=== PATIENT | male | born 1940 | race Hispanic/Latino ===

== ENCOUNTER 2016-03-20 11:54 | Outpatient (CLI) | payer MEDICARE, OTHER ==
--- NOTE | 2016-03-20 15:53 | Cat Scan Report ---
CT scan of abdomen and pelvis with IV contrast: History: Weight loss, carcinoid syndrome. Findings: Normal lung bases. No pleural pericardial effusion. Normal limits and pancreas. Patient status post cholecystectomy. Calcifications at spleen suggestive of calcified granulomas. Small sliding hiatal hernia. Normal adrenals. Single large cyst in the left kidney measures 5.2 x 4.8 cm. Smaller cyst in the left kidney measures 2.8 cm. Large cyst in the right kidney measures 1.4 cm and the smaller cyst measures 1.1 cm with several subcentimeter cysts. Normal bladder.Enlarged prostate measuring 5 cm in maximum diameter. No free intraperitoneal fluid or air. No evidence of adenopathy. Atherosclerotic abdomen without evidence of aneurysm. Diverticulosis sigmoid colon without evidence of diverticulitis. Normal appendix. Gaseous colon with moderate amount of stool in colon. Impression: Calcified granuloma spleen. Small sliding hiatal hernia. Bilateral renal cysts. Enlarged prostate. Diverticulosis sigmoid colon.
== END 2016-03-20 11:55 | disposition home or self-care (01) ==
LOC: CT 11:54
DX: C7A.098 Malignant carcinoid tumors of other sites (principal); K44.9 Diaphragmatic hernia without obstruction or gangrene; K57.30 Diverticulosis of large intestine without perforation or abscess without bleeding; N40.0 Benign prostatic hyperplasia without lower urinary tract symptoms; R63.4 Abnormal weight loss; D73.89 Other diseases of spleen; Z90.49 Acquired absence of other specified parts of digestive tract
CPT/HCPCS: 36415; 74177; 82565; 84520; Q9967

== ENCOUNTER 2016-05-25 09:09 | Outpatient (CLI) | payer MEDICARE, OTHER ==
--- NOTE | 2016-05-25 14:58 | Nuclear Medicine Report ---
BONE SCAN: History: Carcinoid tumor, back pain, right femur pain After injection of isotope, gamma camera imaging of the bony system was done. There is a normal uptake of isotope throughout the bony structures without areas of significantly increased or decreased uptake. Normal uptake in the urinary system is seen. Extrarenal pelvis in the left kidney is noted. Mild degenerative uptake is noted in the spine. No abnormal uptake in the right femur. IMPRESSION: Mild degenerative uptake. No metastatic pattern or fracture identified.
== END 2016-05-25 09:10 | disposition home or self-care (01) ==
LOC: NM 09:09
DX: C7A.00 Malignant carcinoid tumor of unspecified site (principal); M89.9 Disorder of bone, unspecified
CPT/HCPCS: 78306; A9503

== ENCOUNTER 2016-09-24 12:56 | Outpatient (CLI) | payer MEDICARE, OTHER ==
[2016-09-24] MEDS ORDERED: NACL ONE (15:07)
--- NOTE | 2016-09-25 07:47 | Cat Scan Report ---
CT scan of abdomen and pelvis with IV contrast: Compared to 03/20/16. History: Carcinoid. Findings: Normal lung bases. No pleural or pericardial effusion. Normal liver. Calcified granuloma spleen. Normal pancreas. Patient status post cholecystectomy. Normal adrenals. Cyst in left kidney measures 5.5 cm. Second cyst measure 3.09 cm. No interval change. Sub-centimeters cortical cyst right kidney the largest cyst measuring 1.3 cm. No interval change. Normal bladder. Prostate measures 4.3 x 5.5 cm. Diverticulosis sigmoid colon. No evidence of appendicitis. No evidence of adenopathy. No free intraperitoneal fluid or air. Impression: Calcified granuloma spleen. Bilateral renal cysts. Enlarged prostate. Diverticulosis sigmoid colon. No significant interval change.
== END 2016-09-24 12:57 | disposition home or self-care (01) ==
LOC: CT 12:56
DX: C7A.098 Malignant carcinoid tumors of other sites (principal); D73.89 Other diseases of spleen; N28.1 Cyst of kidney, acquired; K57.30 Diverticulosis of large intestine without perforation or abscess without bleeding; N40.0 Benign prostatic hyperplasia without lower urinary tract symptoms; Z90.49 Acquired absence of other specified parts of digestive tract
CPT/HCPCS: 36415; 74177; 82565; 84520; Q9967

== ENCOUNTER 2016-10-28 11:38 | Outpatient (CLI) | payer MEDICARE, OTHER ==
--- NOTE | 2016-10-28 15:02 | Ultrasound Report ---
ULTRASOUND THYROID SCAN History: Thyroid nodule, dysphagia. Findings: The thyroid gland is normal size, contour and echotexture. The right lobe measures 3.7 x 1.5 x 1.8 cm. The left lobe measures 3.3 x 1.3 x 1.5 cm. The isthmus measures 4 mm in thickness. A 3 mm cyst is identified at the inferior whole O. the right thyroid lobe. There are 3 cysts measuring up to 7 mm in the mid to superior left thyroid lobe. No suspicious thyroid mass or cervical adenopathy. There is symmetric perfusion to the thyroid lobes on color Doppler. Impression: Essentially normal exam of the thyroid. Few scattered, tiny thyroid cysts are noted.
== END 2016-10-28 11:39 | disposition home or self-care (01) ==
LOC: US 11:38
PROVIDERS: ATTEND Internal Medicine
DX: E04.1 Nontoxic single thyroid nodule (principal); R13.10 Dysphagia, unspecified; I10 Essential (primary) hypertension; I48.91 Unspecified atrial fibrillation; E78.00 Pure hypercholesterolemia, unspecified; J18.9 Pneumonia, unspecified organism; E11.9 Type 2 diabetes mellitus without complications
CPT/HCPCS: 76536

== ENCOUNTER 2017-02-24 13:07 | Outpatient (CLI) | payer MEDICARE, OTHER ==
--- NOTE | 2017-02-24 18:09 | Ultrasound Report ---
FINAL REPORT EXAM: US TESTICULAR DOPPLER COMP HISTORY: ORCHITIS AND EPIDIDYMITIS TECHNIQUE: Ultrasound scrotum PRIORS: None. FINDINGS: There is some heterogeneity of echotexture right testicle. There are multiple enlarged serpiginous vascular structures seen some of which appear intratesticular. There is normal vascular flow to the right testicle. There is a complex fluid collection within the right hemiscrotum. Right epididymis contains serpiginous vascular structures and has a heterogeneous appearance. Left testicle has a heterogeneous echotexture. There is a small fluid collection within the left hemiscrotum with some debris present. The left epididymis is enlarged and has a complex appearance. Within the left epididymis there is a 1.4 x 0.8 centimeter cyst IMPRESSION: Right-sided varicocele which is partially intratesticular and intra epididymal Bilateral mildly complex small fluid collections Heterogeneous enlarged appearance of the left epididymis Heterogeneous echotexture of the testicles bilaterally Suspect epididymal orchitis most likely bilateral
== END 2017-02-24 13:08 | disposition home or self-care (01) ==
LOC: US 13:07
PROVIDERS: ATTEND Urology
DX: N45.1 Epididymitis (principal); I86.1 Scrotal varices; E11.9 Type 2 diabetes mellitus without complications; I10 Essential (primary) hypertension; I25.10 Atherosclerotic heart disease of native coronary artery without angina pectoris
CPT/HCPCS: 93975

== ENCOUNTER 2017-04-27 10:05 | Inpatient (IN) | payer MEDICARE, OTHER ==
[2017-04-27] MEDS ORDERED: ASPIRIN PO ONE (10:15)
[2017-04-27 10:39] LABS: Basophils % (Auto) 0.4 % (0.0-1.8); Eosinophils # (Auto) 0.1 K/mm3 (0.0-0.4); Eosinophils % (Auto) 1.8 % (0.0-4.3); Hemoglobin 13.6 gm/dl (11.8-15.2); Lymphocytes # (Auto) 0.5 K/mm3 (1.2-5.4); Lymphocytes % (Auto) 7.6 % (13.4-35.0); Mean Corpuscular HGB Conc 32 % (32-34); Mean Corpuscular Volume 79 fl (84-94); Monocytes # (Auto) 0.6 K/mm3 (0.0-0.8); Platelet Count 169 K/mm3 (140-440); Red Blood Count 5.44 M/mm3 (3.65-5.03)
[2017-04-27 10:40] LABS: Mean Corpuscular Hemoglobin 25 pg (28-32); Red Cell Distribution Width 21.1 % (13.2-15.2)
[2017-04-27 11:06] LABS: BUN/Creatinine Ratio 14; Blood Urea Nitrogen 18 mg/dL (9-20); Calcium 9.2 mg/dL (8.4-10.2); Hemolysis Index 8
--- NOTE | 2017-04-27 11:07 | Emergency Department Report ---
ED General Adult HPI - General Chief complaint: Dyspnea/Respdistress Stated complaint: SOB/LEG SWEELING Time Seen by Provider: 04/27/17 10:45 Source: patient Mode of arrival: Ambulatory Limitations: No Limitations - History of Present Illness Initial comments: Patient w. Multiple medical complaints. chronic history of A. fib and chronic chest pain COPD diabetes hypertension he has been told he has musculoskeletal chest pain. He is here for dizzy spells for 24 hours. He says his question of worse with movement of head was some question of spinning he also states that he 's been having chest pain for 4 days and worsening pedal edema for 4 days. He is on Lasix for chronic pedal edema. He takes Lantus lisinopril hydralazine Isordil clonidine. isordil, statin and is here for evaluation of dizzy spells chest pain and worsening pedal edema and dizzy spells make him feel like he is black out -: days(s), unknown Location: chest, lower extremity Radiation: non-radiation Associated Symptoms: chest pain, malaise, other (dizzy spells) - Related Data Home Medications Medication Instructions Recorded Confirmed Last Taken Carvedilol [Coreg] 6.25 mg PO DAILY 03/21/13 06/30/15 06/30/15 yes Dabigatran [Pradaxa] 75 mg PO BID 03/21/13 06/30/15 06/30/15 yes Isosorbide Mononitrate [Isosorbide 120 mg PO DAILY 03/21/13 06/30/15 06/30/15 Mononitrate ER (IMDUR)] yes Latanoprost [Xalatan 0.005% eye 1 drop OU HS 03/21/13 06/30/15 06/30/15 drops] yes Simvastatin [Zocor TAB] 20 mg PO DAILY 03/21/13 06/30/15 06/30/15 yes glipiZIDE [Glucotrol] 10 mg PO DAILY 03/21/13 06/30/15 06/29/15 yes Dexlansoprazole [Dexilant] 30 mg PO QDAY 06/19/14 06/30/15 06/30/15 yes Insulin Glargine [Lantus VIAL] 20 unit SUB-Q QHS 06/19/14 06/30/15 06/30/15 yes Lisinopril [Zestril] 20 mg PO QDAY 06/30/15 06/30/15 06/30/15 yes amLODIPine [Norvasc] 5 mg PO DAILY 06/30/15 06/30/15 06/30/15 yes hydrALAZINE [Apresoline TAB] 100 mg PO DAILY 06/30/15 06/30/15 06/30/15 yes Allergies Allergy/AdvReac Type Severity Reaction Status Date / Time diazepam [From Valium] AdvReac Intermediate CHEST PAIN Verified 01/31/14 14:10 ED Review of Systems ROS: Stated complaint: SOB/LEG SWEELING Other details as noted in HPI Comment: All other systems reviewed and negative Eyes: denies: eye discharge, vision change Respiratory: orthopnea, shortness of breath. denies: cough, SOB with exertion, wheezing Cardiovascular: chest pain, palpitations, orthopnea, syncope, paroxysmal nocturnal dyspnea Gastrointestinal: denies: diarrhea, constipation, hematemesis, melena, hematochezia Musculoskeletal: denies: joint swelling, arthralgia, myalgia Neurological: denies: weakness, numbness, paresthesias, confusion, abnormal gait ED Past Medical Hx - Past Medical History Hx Hypertension: Yes (took this morning) Hx Diabetes: Yes (FOR 10 YRS) Hx GERD: Yes Hx Liver Disease: No Hx Renal Disease: No Hx Sickle Cell Disease: No Hx Seizures: No Hx Asthma: No Hx COPD: No Hx HIV: No Additional medical history: a fib - Surgical History Hx Coronary Stent: Yes (X1 IN 2002) Hx Pacemaker: No Hx Internal Defibrillator: No Hx Cholecystectomy: Yes ([facility] 04-25-07) Additional Surgical History: Hernia repair 06/27/14 at [facility] - Social History Smoking Status: Never Smoker Substance Use Type: None - Medications Home Medications: Home Medications Medication Instructions Recorded Confirmed Last Taken Type Carvedilol [Coreg] 6.25 mg PO DAILY 03/21/13 06/30/15 06/30/15 History yes Dabigatran [Pradaxa] 75 mg PO BID 03/21/13 06/30/15 06/30/15 History yes Isosorbide Mononitrate [Isosorbide 120 mg PO DAILY 03/21/13 06/30/15 06/30/15 History Mononitrate ER (IMDUR)] yes Latanoprost [Xalatan 0.005% eye 1 drop OU HS 03/21/13 06/30/15 06/30/15 History drops] yes Simvastatin [Zocor TAB] 20 mg PO DAILY 03/21/13 06/30/15 06/30/15 History yes glipiZIDE [Glucotrol] 10 mg PO DAILY 03/21/13 06/30/15 06/29/15 History yes Dexlansoprazole [Dexilant] 30 mg PO QDAY 06/19/14 06/30/15 06/30/15 History yes Insulin Glargine [Lantus VIAL] 20 unit SUB-Q QHS 06/19/14 06/30/15 06/30/15 History yes Lisinopril [Zestril] 20 mg PO QDAY 06/30/15 06/30/15 06/30/15 History yes amLODIPine [Norvasc] 5 mg PO DAILY 06/30/15 06/30/15 06/30/15 History yes hydrALAZINE [Apresoline TAB] 100 mg PO DAILY 06/30/15 06/30/15 06/30/15 History yes ED Physical Exam - General Limitations: No Limitations General appearance: alert, anxious - Head Head exam: Present: atraumatic, normocephalic - Eye Eye exam: Present: PERRL, EOMI - Neck Neck exam: Present: normal inspection. Absent: tenderness, meningismus - Respiratory Respiratory exam: Present: wheezes, rales, rhonchi, prolonged expiratory. Absent: stridor - Cardiovascular Cardiovascular Exam: Present: regular rate, normal rhythm - GI/Abdominal GI/Abdominal exam: Present: soft. Absent: tenderness, guarding, rebound, rigid , mass, bruit, pulsatile mass - Extremities Exam Extremities exam: Present: pedal edema. Absent: calf tenderness - Neurological Exam Neurological exam: Present: alert, oriented X3, CN II-XII intact. Absent: motor sensory deficit - Skin Skin exam: Absent: cyanosis, diaphoretic, erythema, urticaria, vesicles, petechiae ED Course Vital Signs 04/27/17 04/27/17 04/27/17 10:08 10:50 11:46 Temperature 98.0 F Pulse Rate 78 Respiratory 18 18 Rate Blood Pressure 168/80 O2 Sat by Pulse 96 98 98 Oximetry 04/27/17 04/27/17 04/27/17 12:00 12:15 12:30 Temperature Pulse Rate Respiratory Rate Blood Pressure 142/76 142/76 129/75 O2 Sat by Pulse 98 98 96 Oximetry 04/27/17 04/27/17 04/27/17 14:31 14:45 15:01 Temperature Pulse Rate 99 H 56 L 56 L Respiratory 11 L 14 12 Rate Blood Pressure 129/75 130/85 141/82 O2 Sat by Pulse 99 99 Oximetry 04/27/17 04/27/17 04/27/17 15:11 15:21 15:31 Temperature Pulse Rate 65 61 72 Respiratory 13 12 19 Rate Blood Pressure 141/82 141/82 148/83 O2 Sat by Pulse 98 97 97 Oximetry 04/27/17 04/27/17 04/27/17 15:41 15:51 16:00 Temperature Pulse Rate 62 74 64 Respiratory 16 15 13 Rate Blood Pressure 148/83 148/83 132/71 O2 Sat by Pulse 98 97 97 Oximetry 04/27/17 04/27/17 04/27/17 16:11 16:21 16:30 Temperature Pulse Rate 71 67 68 Respiratory 13 17 14 Rate Blood Pressure 132/71 132/71 138/82 O2 Sat by Pulse 98 97 98 Oximetry 04/27/17 04/27/17 04/27/17 16:41 16:51 17:01 Temperature Pulse Rate 58 L 61 63 Respiratory 13 15 14 Rate Blood Pressure 138/82 138/82 151/91 O2 Sat by Pulse 98 98 98 Oximetry 04/27/17 04/27/17 17:11 17:21 Temperature Pulse Rate 79 73 Respiratory 10 L 15 Rate Blood Pressure 151/91 151/91 O2 Sat by Pulse 98 98 Oximetry ED Medical Decision Making - Lab Data Result diagrams: 04/27/17 10:17 04/27/17 10:17 - EKG Data -: EKG Interpreted by Me Rate: normal - EKG Data Interpretation: nonspecific ST-T wave zehra 04/27/17 18:20 no acute ischemic change - Medical Decision Making Patient was discussed with Dr. Khan who will admit for further evaluation of dizzy spells with possible near syncope with worsening of his CHF and chest pain. Given his comorbidities he will need to be further evaluated and initial troponin was negative head CT was nothing acute Critical care attestation.: If time is entered above; I have spent that time in minutes in the direct care of this critically ill patient, excluding procedure time. ED Disposition Clinical Impression: CHF (congestive heart failure), Dizziness Disposition: 09 OP ADMIT IP TO THIS HOSP Is pt being admited?: Yes Condition: Stable Referrals: PRIMARY CARE,MD [Primary Care Provider] - 7 Days Time of Disposition: 18:22
[2017-04-27 11:26] LABS: INR 1.24 (0.87-1.13)
[2017-04-27 11:27] LABS: Partial Thromboplastin Time 40.1 Sec. (24.2-36.6)
--- NOTE | 2017-04-27 11:39 | XRay Report ---
CHEST XRAY, 2 VIEWS: History: Chest pain. Findings: There is mild cardiomegaly. Pulmonary vessels are within normal limits. The lungs are clear and fully expanded. No infiltrate, pleural effusion or pneumothorax. Normal thoracic cage. IMPRESSION: Mild cardiomegaly.
--- NOTE | 2017-04-27 13:44 | Cat Scan Report ---
CT HEAD WITHOUT CONTRAST: HISTORY: Dizziness. TECHNIQUE: Sequential CT images without contrast. FINDINGS: Images obtained show bilateral prominence of the sulci and ventricles. There are no abnormal intra- or extra-axial blood or fluid collections. There are no focal masses or evidence of mass effect. The mlalory white matter differentiation appears within normal limits. Regions of periventricular decreased attenuation are consistent with microangiopathic ischemic disease. The posterior fossa structures including the fourth ventricle, cerebellum, and brainstem appear normal. IMPRESSION: Evidence of atrophy and microangiopathic ischemic disease. No acute intracranial process noted.
[2017-04-27] MEDS ORDERED: ASPIRIN ONE (16:20)
--- NOTE | 2017-04-27 23:06 | History and Physical Report ---
History of Present Illness Date of examination: 04/27/17 Medications and Allergies Allergies Allergy/AdvReac Type Severity Reaction Status Date / Time diazepam [From Valium] AdvReac Intermediate CHEST PAIN Verified 01/31/14 14:10 Home Medications Medication Instructions Recorded Confirmed Last Taken Type Dabigatran [Pradaxa] 75 mg PO BID 03/21/13 04/27/17 04/26/17 History Isosorbide Mononitrate [Isosorbide 120 mg PO DAILY 03/21/13 04/27/17 06/30/15 History Mononitrate ER (IMDUR)] yes Latanoprost [Xalatan 0.005% eye 1 drop OU HS 03/21/13 04/27/17 04/26/17 History drops] Simvastatin [Zocor TAB] 20 mg PO DAILY 03/21/13 04/27/17 06/30/15 History yes Insulin Glargine [Lantus VIAL] 30 unit SUB-Q QHS 06/19/14 04/27/17 04/26/17 History Lisinopril [Zestril] 20 mg PO DAILY 06/30/15 04/27/17 06/30/15 History yes hydrALAZINE [Apresoline TAB] 100 mg PO BID 06/30/15 04/27/17 06/30/15 History yes Carvedilol [Coreg] 12.5 mg PO BID 04/27/17 04/27/17 Unknown History Dexlansoprazole [Dexilant] 60 mg PO DAILY 04/27/17 04/27/17 Unknown History Furosemide [Lasix TAB] 40 mg PO DAILY 04/27/17 04/27/17 Unknown History Sitagliptin Phosphate [Januvia] 50 mg PO DAILY 04/27/17 04/27/17 04/26/17 History amLODIPine [Norvasc] 10 mg PO QPM 04/27/17 04/27/17 04/26/17 History cloNIDine [Catapres] 0.2 mg PO BID 04/27/17 04/27/17 Unknown History Exam - Constitutional Vitals: Temp Pulse Resp BP Pulse Ox 98.0 F 72 12 146/77 97 04/27/17 10:08 04/27/17 20:50 04/27/17 20:50 04/27/17 20:50 04/27/17 20:50 Results - Labs CBC & Chem 7: 04/27/17 10:17 04/27/17 10:17 Labs: Laboratory Last Values WBC 6.4 K/mm3 (4.5-11.0) 04/27/17 10:17 RBC 5.44 M/mm3 (3.65-5.03) H 04/27/17 10:17 Hgb 13.6 gm/dl (11.8-15.2) 04/27/17 10:17 Hct 43.0 % (35.5-45.6) 04/27/17 10:17 MCV 79 fl (84-94) L 04/27/17 10:17 MCH 25 pg (28-32) L 04/27/17 10:17 MCHC 32 % (32-34) 04/27/17 10:17 RDW 21.1 % (13.2-15.2) H 04/27/17 10:17 Plt Count 169 K/mm3 (140-440) 04/27/17 10:17 Lymph % (Auto) 7.6 % (13.4-35.0) L 04/27/17 10:17 [place] % (Auto) 10.0 % (0.0-7.3) H 04/27/17 10:17 Eos % (Auto) 1.8 % (0.0-4.3) 04/27/17 10:17 Baso % (Auto) 0.4 % (0.0-1.8) 04/27/17 10:17 Lymph # 0.5 K/mm3 (1.2-5.4) L 04/27/17 10:17 [place] # 0.6 K/mm3 (0.0-0.8) 04/27/17 10:17 Eos # 0.1 K/mm3 (0.0-0.4) 04/27/17 10:17 Baso # 0.0 K/mm3 (0.0-0.1) 04/27/17 10:17 Seg Neutrophils % 80.2 % (40.0-70.0) H 04/27/17 10:17 Seg Neutrophils # 5.1 K/mm3 (1.8-7.7) 04/27/17 10:17 PT 16.3 Sec. (12.2-14.9) H 04/27/17 10:17 INR 1.24 (0.87-1.13) H 04/27/17 10:17 APTT 40.1 Sec. (24.2-36.6) H 04/27/17 10:17 Sodium 139 mmol/L (137-145) 04/27/17 10:17 Potassium 4.2 mmol/L (3.6-5.0) 04/27/17 10:17 Chloride 100.2 mmol/L (98-107) 04/27/17 10:17 Carbon Dioxide 27 mmol/L (22-30) 04/27/17 10:17 Anion Gap 16 mmol/L 04/27/17 10:17 BUN 18 mg/dL (9-20) 04/27/17 10:17 Creatinine 1.3 mg/dL (0.8-1.5) 04/27/17 10:17 Estimated GFR 54 ml/min 04/27/17 10:17 BUN/Creatinine Ratio 14 % 04/27/17 10:17 Glucose 242 mg/dL (75-100) H 04/27/17 10:17 Calcium 9.2 mg/dL (8.4-10.2) 04/27/17 10:17 Troponin T < 0.010 ng/mL (0.00-0.029) 04/27/17 15:50 NT-Pro-B Natriuret Pep 1584 pg/mL (0-900) H 04/27/17 10:17
--- NOTE | 2017-04-27 23:06 | Event Note ---
Date: 04/27/17 See Dictated H/P in reports CHF exacerbation Chest pain r/o [place] Cardiology consult IDDM HTN GERD
[2017-04-27] MEDS ORDERED: SODIUM CHLORIDE FLUSH SYRINGE 10 ML IV PRN (23:08)
[2017-04-27] MEDS ORDERED: ZOFRAN IV PRN (23:08)
[2017-04-27] MEDS ORDERED: DILAUDID IV PRN (23:08)
[2017-04-27] MEDS ORDERED: D50W (25GM) Syringe IV PRN (23:08)
[2017-04-27] MEDS ORDERED: AMBIEN PO PRN (23:08)
[2017-04-27] MEDS ORDERED: PERCOCET 5/325 PO PRN (23:08)
[2017-04-27] MEDS ORDERED: MORPHINE IV PRN (23:08)
[2017-04-27] MEDS ORDERED: PRADAXA PO SCH (23:45)
[2017-04-27] MEDS ORDERED: CATAPRES ONE (23:52)
[2017-04-27] MEDS ORDERED: COREG ONE (23:53)
[2017-04-27] MEDS ORDERED: APRESOLINE ONE (23:53)
[2017-04-27] MEDS ORDERED: K-DUR PO ONE (23:53)
[2017-04-28] MEDS ORDERED: PERCOCET 5/325 ONE (00:01)
[2017-04-28] MEDS ORDERED: TYLENOL ONE (00:12)
[2017-04-28] MEDS: CATAPRES PO SCH ×3 (00:18→21:46)
[2017-04-28] MEDS: APRESOLINE PO SCH ×3 (00:18→21:47)
[2017-04-28] MEDS: COREG PO SCH ×2 (00:20→09:04)
[2017-04-28] MEDS: K-DUR PO SCH ×2 (00:20→13:18)
[2017-04-28] MEDS: TYLENOL PO PRN (00:21)
[2017-04-28 01:29] LABS: Chol/HDL Ratio 3.83 %
[2017-04-28] MEDS: PRADAXA PO SCH ×3 (01:50→21:48)
[2017-04-28] MEDS: LASIX IV SCH ×2 (05:27→17:08)
[2017-04-28 05:57] LABS: Basophils % (Auto) 0.5 % (0.0-1.8); Eosinophils # (Auto) 0.2 K/mm3 (0.0-0.4); Eosinophils % (Auto) 2.5 % (0.0-4.3); Hematocrit 39.6 % (35.5-45.6); Hemoglobin 12.6 gm/dl (11.8-15.2); Lymphocytes # (Auto) 0.7 K/mm3 (1.2-5.4); Lymphocytes % (Auto) 11.4 % (13.4-35.0); Mean Corpuscular HGB Conc 32 % (32-34); Mean Corpuscular Volume 79 fl (84-94); Monocytes # (Auto) 0.9 K/mm3 (0.0-0.8); Monocytes % (Auto) 14.6 % (0.0-7.3); Platelet Count 152 K/mm3 (140-440); Red Blood Count 5.04 M/mm3 (3.65-5.03)
[2017-04-28 06:09] LABS: Mean Corpuscular Hemoglobin 25 pg (28-32)
[2017-04-28 06:25] LABS: Albumin 3.6 g/dL (3.9-5); Calcium 8.6 mg/dL (8.4-10.2)
[2017-04-28] MEDS: PROTONIX PO SCH (09:02)
[2017-04-28] MEDS: TRADJENTA PO SCH (09:04)
[2017-04-28] MEDS: SODIUM CHLORIDE FLUSH SYRINGE 10 ML IV SCH ×2 (09:05→21:55)
[2017-04-28] MEDS: ZESTRIL PO SCH (09:05)
[2017-04-28] MEDS: IMDUR PO SCH (09:05)
[2017-04-28] MEDS ORDERED: LASIX PO SCH (10:00)
[2017-04-28] MEDS ORDERED: PRADAXA PO SCH (10:00)
[2017-04-28] MEDS ORDERED: HEPARIN SUB-Q SCH (10:00)
--- NOTE | 2017-04-28 10:31 | History and Physical Report ---
CHIEF COMPLAINT: 1. Left-sided chest pain. 2. Dizzy spells for 24 hours. HISTORY OF PRESENT ILLNESS: A 76-year-old male with history of hypertension, atrial fibrillation, coronary artery disease, glaucoma, hyperlipidemia, type 2 insulin-dependent diabetes, comes in for left-sided chest pain. Also, feeling dizzy, worse with movement of head. Chest pain for 4 days off and on. Also, worsening shortness of breath and pedal edema for 4 days. Orthopnea present. Increasing pedal edema. Dizziness is better while in the ER. PAST MEDICAL HISTORY: As mentioned, hypertension, insulin-dependent diabetes, gastroesophageal reflux disease, atrial fibrillation. PAST SURGICAL HISTORY: Significant for coronary stent x 1 in 2002, laparoscopic cholecystectomy, hernia repair. SOCIAL HISTORY: Does not smoke. No alcohol, no recreational drugs. FAMILY HISTORY: Hypertension. REVIEW OF SYSTEMS: Significant for exertional dyspnea on minimal exertion. Orthopnea. Also, increasing pedal edema. Left-sided chest pain. Dizziness. Otherwise, review of systems negative. CURRENT MEDICATIONS: On chart. PHYSICAL EXAMINATION: GENERAL: Elderly male, cooperative during examination, pleasant. VITAL SIGNS: Blood pressure 154/75, temperature 98.3, pulse 69, respirations 20, sats are 97%. HEENT: Unremarkable. Pupils equal and reactive. NECK: Supple, no lymphadenopathy, no thyromegaly. LUNGS: Clear to auscultation and percussion. Good air entry. CARDIOVASCULAR: S1, S2 heard. No gallop, no murmur, no rub. Apical impulse in left fifth intercostal space and midclavicular line. ABDOMEN: Soft and benign. No hepatosplenomegaly. No guarding, no rigidity. EXTREMITIES: Good pedal pulses. No pedal edema. CENTRAL NERVOUS SYSTEM: Alert and oriented x 4, nonfocal exam. LABORATORY DATA: EKG shows no EKG changes, otherwise normal rhythm. BNP is 1584, platelets count 181. 1.Chest pain r/o [place] protocol. Cardiology consult requested. Echocardiogram ordered. 2A.Insulin-dependent diabetes. Continue insulin and coverage. Uncontrolled. A1c of 5. To adjust medication at the time of discharge. 2B. Hypertension. Continue hydralazine and Coreg. 3. Gastroesophageal disease. Continue proton pump inhibitors. 4. Coronary artery disease. Continue at isosorbide mononitrate. ASA. 5. Hyperlipidemia. Continue Zocor 20 mg daily. 6. DVT prophylaxis. Heparin 5000 q.12. [facility]# [id number] MICHELLEM/NTS MTDD
--- NOTE | 2017-04-28 11:05 | Consultation ---
History of Present Illness Consult date: 04/28/17 Requesting physician: MILLIE ELDRIDGE Consult reason: congestive heart failure History of present illness: The pt is a 76 YO male with a past medical history significant for CAD s/p PCI, HTN, HLP, DM, permanent atrial fibrillation with SVR, anticoagulated with Pradaxa, carcinoid syndrome, polycythemia, CKD, LVH. He is followed in our office by Dr. De La Rosa. He presented with c/o progressively worsening BLE edema and SOB x 1 week prior to arrival and intermittent vertigo since Wednesday. He reports that he has been feeling a "room spinning" sensation since Wednesday. The spinning sometimes occurs with activity and sometimes while at rest. There are no clear aggravating or alleviating factors. He denies any chest pain, palpitations, n/v, diaphoresis or syncope. Review of telemetry shows pt is in AFib with SVR with HR range 40s - 60s with 2-3 second pauses. BPs stable. Pt has been taking coreg 12.5mg PO BID and clonidine 0.2mg PO BID at home. Pt reports that he is known to have bradycardia and underwent Holter study in our office several years ago. He reports that he was evaluated by Dr. Santana for possible PPM placement and was told that PPM was not indicated at that time. Holter study done 08/2013 showed dominant rhythm of AFib with mostly SVR, HR range 49-111bpm, no ventricular ectopies, no supraventricular ectopies. Pt underwent lexiscan MPI stress test in our office 12/2016 which showed some fixed defects, no significant stress induced ischemia, EF 61%. Echo done 05/2015 showed EF 55-60%, mild MR, mild TR, trace AR, mod LVH. Past History Past Medical History: atrial fib, CAD, diabetes, hypertension, hyperlipidemia, other (carcinoid syndrome, polycythemia, CKD, LVH) Social history: lives with family (roommate), other (works at [employer]). denies: smoking, alcohol abuse, prescription drug abuse Medications and Allergies Allergies Allergy/AdvReac Type Severity Reaction Status Date / Time diazepam [From Valium] AdvReac Intermediate CHEST PAIN Verified 01/31/14 14:10 Home Medications Medication Instructions Recorded Confirmed Last Taken Type Dabigatran [Pradaxa] 75 mg PO BID 03/21/13 04/27/17 04/26/17 History Isosorbide Mononitrate [Isosorbide 120 mg PO DAILY 03/21/13 04/27/17 06/30/15 History Mononitrate ER (IMDUR)] yes Latanoprost [Xalatan 0.005% eye 1 drop OU HS 03/21/13 04/27/17 04/26/17 History drops] Simvastatin [Zocor TAB] 20 mg PO DAILY 03/21/13 04/27/17 06/30/15 History yes Insulin Glargine [Lantus VIAL] 30 unit SUB-Q QHS 06/19/14 04/27/17 04/26/17 History Lisinopril [Zestril] 20 mg PO DAILY 06/30/15 04/27/17 06/30/15 History yes hydrALAZINE [Apresoline TAB] 100 mg PO BID 06/30/15 04/27/17 06/30/15 History yes Carvedilol [Coreg] 12.5 mg PO BID 04/27/17 04/27/17 Unknown History Dexlansoprazole [Dexilant] 60 mg PO DAILY 04/27/17 04/27/17 Unknown History Furosemide [Lasix TAB] 40 mg PO DAILY 04/27/17 04/27/17 Unknown History Sitagliptin Phosphate [Januvia] 50 mg PO DAILY 04/27/17 04/27/17 04/26/17 History amLODIPine [Norvasc] 10 mg PO QPM 04/27/17 04/27/17 04/26/17 History cloNIDine [Catapres] 0.2 mg PO BID 04/27/17 04/27/17 Unknown History Active Meds: Active Medications Acetaminophen (Tylenol) 650 mg PO Q4H PRN PRN Reason: Pain MILD(1-3)/Fever >100.5/YOUNG Last Admin: 04/28/17 00:21 Dose: 650 mg Amlodipine Besylate (Norvasc) 10 mg PO QPM [facility] Clonidine HCl (Catapres) 0.2 mg PO BID [facility] Last Admin: 04/28/17 09:04 Dose: Not Given Dabigatran (Pradaxa) 75 mg PO BID [facility]; Protocol Last Admin: 04/28/17 09:02 Dose: 75 mg Dextrose (D50w (25gm) Syringe) 50 ml IV PRN PRN PRN Reason: Hypoglycemia Furosemide (Lasix) 40 mg IV 0600,1800 [facility] Last Admin: 04/28/17 05:27 Dose: 40 mg Heparin Sodium (Porcine) (Heparin) 5,000 unit SUB-Q Q12HR [facility] Last Admin: 04/28/17 09:02 Dose: 5,000 unit Hydralazine HCl (Apresoline) 100 mg PO BID [facility] Last Admin: 04/28/17 09:04 Dose: Not Given Hydromorphone HCl (Dilaudid) 0.5 mg IV Q3H PRN PRN Reason: Pain , Severe (7-10) Insulin Glargine (Lantus) 30 units SUB-Q QHS [facility] Insulin Human NPH (Humulin N) 0 unit SUB-Q [facility]; Protocol Isosorbide Mononitrate (Imdur) 120 mg PO DAILY [facility] Last Admin: 04/28/17 09:05 Dose: Not Given Latanoprost (Latanoprost 0.005%) 1 drops OU HS [facility] Linagliptin (Tradjenta) 5 mg PO QDAY [facility] Last Admin: 04/28/17 09:04 Dose: 5 mg Lisinopril (Zestril) 20 mg PO DAILY [facility] Last Admin: 04/28/17 09:05 Dose: Not Given Morphine Sulfate (Morphine) 2 mg IV Q4H PRN PRN Reason: Pain, Moderate (4-6) Ondansetron HCl (Zofran) 4 mg IV Q8H PRN PRN Reason: Nausea And Vomiting Oxycodone/Acetaminophen (Percocet 5/325) 1 tab PO Q6H PRN PRN Reason: Pain, Moderate (4-6) Pantoprazole Sodium (Protonix) 40 mg PO DAILY [facility] Last Admin: 04/28/17 09:02 Dose: 40 mg Potassium Chloride (K-Dur) 20 meq PO Q12H [facility] Last Admin: 04/28/17 00:20 Dose: 20 meq Pravastatin Sodium (Pravachol) 40 mg PO QHS [facility] Sodium Chloride (Sodium Chloride Flush Syringe 10 Ml) 10 ml IV BID [facility] Last Admin: 04/28/17 09:05 Dose: 10 ml Sodium Chloride (Sodium Chloride Flush Syringe 10 Ml) 10 ml IV PRN PRN PRN Reason: LINE FLUSH Zolpidem Tartrate (Ambien) 5 mg PO QHS PRN PRN Reason: Insomnia Review of Systems Constitutional: no weight loss, no weight gain, no fever, no chills, no sweats Ears, nose, mouth and throat: vertigo, no ear pain, no nose pain, no sinus pressure, no sinus pain, no headache Cardiovascular: lightheadedness, shortness of breath, dyspnea on exertion, leg edema, no chest pain, no palpitations, no rapid/irregular heart beat, no edema, no syncope Respiratory: shortness of breath, dyspnea on exertion, no cough, no congestion, no wheezing, no pain on inspiration Gastrointestinal: no abdominal pain, no nausea, no vomiting, no diarrhea, no constipation, no change in bowel habits Genitourinary Male: no hematuria, no flank pain, no discharge, no urinary frequency, no urinary hesitancy Musculoskeletal: no neck stiffness, no neck pain, no shooting arm pain, no arm numbness/tingling, no low back pain, no shooting leg pain, no leg numbness/ tingling, no redness of joints Integumentary: no rash, no pruritis, no redness, no sores, no wounds Neurological: vertigo, no head injury, no paralysis, no weakness, no parathesias , no numbness, no tingling, no seizures, no syncope Psychiatric: no anxiety Endocrine: no cold intolerance, no heat intolerance Hematologic/Lymphatic: no easy bruising, no easy bleeding, no lymphadenopathy Allergic/Immunologic: no urticaria, no wheezing, no persistent infections Physical Examination Vital Signs Temp Pulse Resp BP Pulse Ox 98.0 F 78 18 168/80 96 04/27/17 10:08 04/27/17 10:08 04/27/17 10:08 04/27/17 10:08 04/27/17 10:08 General appearance: no acute distress HEENT: Positive: PERRL, Normocephaly, Mucus Membranes Moist Neck: Positive: neck supple, trachea midline Cardiac: Positive: irregularly irregular, S1/S2, S3, Bradycardia Lungs: Positive: clear to auscultation Neuro: Positive: Grossly Intact Abdomen: Positive: Soft. Negative: Tender Skin: Positive: Clear. Negative: Rash, Wound Musculoskeletal: No Pain, Normal Range of Motion Extremities: Present: +1 Edema (BLE) Results 04/28/17 05:12 04/28/17 05:12 Cardiac Enzymes 04/28/17 Range/Units 05:12 AST 13 (5-40) units/L Coagulation 04/27/17 Range/Units 10:17 PT 16.3 H (12.2-14.9) Sec. INR 1.24 H (0.87-1.13) APTT 40.1 H (24.2-36.6) Sec. Lipids 04/27/17 Range/Units 23:36 Triglycerides 181 H (2-149) mg/dL Cholesterol 92 (50-199) mg/dL HDL Cholesterol 24 L (40-59) mg/dL Cholesterol/HDL Ratio 3.83 % CBC 04/28/17 Range/Units 05:12 WBC 6.1 (4.5-11.0) K/mm3 RBC 5.04 H (3.65-5.03) M/mm3 Hgb 12.6 (11.8-15.2) gm/dl Hct 39.6 (35.5-45.6) % Plt Count 152 (140-440) K/mm3 Lymph # 0.7 L (1.2-5.4) K/mm3 [place] # 0.9 H (0.0-0.8) K/mm3 Eos # 0.2 (0.0-0.4) K/mm3 Baso # 0.0 (0.0-0.1) K/mm3 Comprehensive Metabolic Panel 04/27/17 04/28/17 Range/Units 10:17 05:12 Sodium 139 143 (137-145) mmol/L Potassium 4.2 3.7 (3.6-5.0) mmol/L Chloride 100.2 105.2 (98-107) mmol/L Carbon Dioxide 27 25 (22-30) mmol/L BUN 18 17 (9-20) mg/dL Creatinine 1.3 1.4 (0.8-1.5) mg/dL Glucose 242 H 128 H (75-100) mg/dL Calcium 9.2 8.6 (8.4-10.2) mg/dL AST 13 (5-40) units/L ALT 12 (7-56) units/L Alkaline Phosphatase 64 (35-129) units/L Total Protein 5.9 L (6.3-8.2) g/dL Albumin 3.6 L (3.9-5) g/dL - Imaging and Cardiology Echo: report reviewed (05/2015 showed EF 55-60%, mild MR, mild TR, trace AR, mod LVH. ) Holter: report reviewed (08/2013 showed dominant rhythm of AFib with mostly SVR, HR range 49-111bpm, no ventricular ectopies, no supraventricular ectopies. ) EKG: report reviewed, image reviewed EKG interpretations - Telemetry EKG Rhythm: Atrial Fibrillation - EKG Supraventricular dysrhythmia: atrial fibrillation Assessment and Plan Assessment: Acute heart failure with preserved EF Permanent atrial fibrillation with SVR - anticoagulated with Pradaxa Vertigo / ? symptomatic bradycardia - head CT with NAF CAD s/p PCI HTN HLP DM Carcinoid syndrome olycythemia CKD Plan: No indication for repeat stress test at this time given recent negative stress test in our office 12/2016. F/u echo. Obtain thyroid profile. Obtain orthostatics. Hold home Coreg and monitor HR. Consider weaning off clonidine if HR does not improve. Continue diuresis. Repeat BMP in AM. Assessment and plan reviewed with pt at bedside. The patient has been seen in conjunction with Dr. Charles who agrees with the assessment and plan of care.
--- NOTE | 2017-04-28 16:44 | Progress Note ---
Assessment and Plan Assessment and plan: Acute and chronic diastolic CHF exacerbation Atrial fibrillation on anticoagulation, pradaxa Vertigo / ?symptomatic bradycardia - head CT with NAF Polycythemia, Carcinoid syndrome CAD s/p PCI DM - Cardiology was consulted, and Coumadin no cardiac workup - Sliding scale insulin, continue Pradaxa for atrial fibrillation, continue beta monica for now - We'll monitor him BMP - Follow electrocardiogram DVT prophylaxis - On pradaxa Disposition - Per cardiology History Interval history: Patient was seen and evaluated this morning, patient has some difficulty of presenting, edema is getting better. Hospitalist Physical - Physical exam Narrative exam: Not in cardiopulmonary distress. The patient appeared well nourished and normally developed. Vital signs as documented. Head exam is unremarkable. No scleral icterus . Neck is without jugular venous distension, thyromegaly, or carotid bruits. Lungs are clear to auscultation. Cardiac exam reveals regular rate and Rhythm. Abdominal exam reveals normal bowel sounds. Extremities +2 pedal and pretibial edema. BAGGAGE PORTER: Alert and oriented 3. No focal weakness. - Constitutional Vitals: Temp Pulse Resp BP Pulse Ox 98.5 F 59 L 20 150/81 97 04/28/17 16:00 04/28/17 16:00 04/28/17 16:00 04/28/17 16:00 04/28/17 16:00 General appearance: Present: no acute distress Results - Labs CBC & Chem 7: 04/28/17 05:12 04/28/17 05:12 Labs: Laboratory Last Values WBC 6.1 K/mm3 (4.5-11.0) 04/28/17 05:12 RBC 5.04 M/mm3 (3.65-5.03) H 04/28/17 05:12 Hgb 12.6 gm/dl (11.8-15.2) 04/28/17 05:12 Hct 39.6 % (35.5-45.6) 04/28/17 05:12 MCV 79 fl (84-94) L 04/28/17 05:12 MCH 25 pg (28-32) L 04/28/17 05:12 MCHC 32 % (32-34) 04/28/17 05:12 RDW 21.0 % (13.2-15.2) H 04/28/17 05:12 Plt Count 152 K/mm3 (140-440) 04/28/17 05:12 Lymph % (Auto) 11.4 % (13.4-35.0) L 04/28/17 05:12 [place] % (Auto) 14.6 % (0.0-7.3) H 04/28/17 05:12 Eos % (Auto) 2.5 % (0.0-4.3) 04/28/17 05:12 Baso % (Auto) 0.5 % (0.0-1.8) 04/28/17 05:12 Lymph # 0.7 K/mm3 (1.2-5.4) L 04/28/17 05:12 [place] # 0.9 K/mm3 (0.0-0.8) H 04/28/17 05:12 Eos # 0.2 K/mm3 (0.0-0.4) 04/28/17 05:12 Baso # 0.0 K/mm3 (0.0-0.1) 04/28/17 05:12 Seg Neutrophils % 71.0 % (40.0-70.0) H 04/28/17 05:12 Seg Neutrophils # 4.3 K/mm3 (1.8-7.7) 04/28/17 05:12 PT 16.3 Sec. (12.2-14.9) H 04/27/17 10:17 INR 1.24 (0.87-1.13) H 04/27/17 10:17 APTT 40.1 Sec. (24.2-36.6) H 04/27/17 10:17 Sodium 143 mmol/L (137-145) 04/28/17 05:12 Potassium 3.7 mmol/L (3.6-5.0) 04/28/17 05:12 Chloride 105.2 mmol/L (98-107) 04/28/17 05:12 Carbon Dioxide 25 mmol/L (22-30) 04/28/17 05:12 Anion Gap 17 mmol/L 04/28/17 05:12 BUN 17 mg/dL (9-20) 04/28/17 05:12 Creatinine 1.4 mg/dL (0.8-1.5) 04/28/17 05:12 Estimated GFR 49 ml/min 04/28/17 05:12 BUN/Creatinine Ratio 12 % 04/28/17 05:12 Glucose 128 mg/dL (75-100) H 04/28/17 05:12 POC Glucose 185 (70-105) H 04/28/17 15:28 Hemoglobin A1c 8.6 % (4-6) H 04/28/17 00:01 Calcium 8.6 mg/dL (8.4-10.2) 04/28/17 05:12 Total Bilirubin 0.70 mg/dL (0.1-1.2) 04/28/17 05:12 AST 13 units/L (5-40) 04/28/17 05:12 ALT 12 units/L (7-56) 04/28/17 05:12 Alkaline Phosphatase 64 units/L (35-129) 04/28/17 05:12 Troponin T < 0.010 ng/mL (0.00-0.029) 04/28/17 13:02 NT-Pro-B Natriuret Pep 1584 pg/mL (0-900) H 04/27/17 10:17 Total Protein 5.9 g/dL (6.3-8.2) L 04/28/17 05:12 Albumin 3.6 g/dL (3.9-5) L 04/28/17 05:12 Albumin/Globulin Ratio 1.6 % 04/28/17 05:12 Triglycerides 181 mg/dL (2-149) H 04/27/17 23:36 Cholesterol 92 mg/dL (50-199) 04/27/17 23:36 LDL Cholesterol Direct 39 mg/dL (50-130) L 04/27/17 23:36 HDL Cholesterol 24 mg/dL (40-59) L 04/27/17 23:36 Cholesterol/HDL Ratio 3.83 % 04/27/17 23:36 TSH 4.250 mlU/mL (0.270-4.200) H 04/28/17 13:02 Free T4 1.11 ng/dL (0.76-1.46) 04/28/17 13:02
[2017-04-28] MEDS: HumuLIN R SUB-Q SCH ×2 (17:08→21:54)
[2017-04-28] MEDS ORDERED: NORVASC PO SCH (18:00)
[2017-04-28] MEDS ORDERED: PRAVACHOL PO SCH (22:00)
[2017-04-28] MEDS ORDERED: LANTUS SUB-Q SCH (22:00)
[2017-04-28] MEDS ORDERED: LATANOPROST 0.005% OU SCH (22:00)
[2017-04-29] MEDS: K-DUR PO SCH (00:21)
[2017-04-29] MEDS: TYLENOL PO PRN (00:23)
[2017-04-29] MEDS: LASIX IV SCH (05:45)
[2017-04-29 06:30] LABS: Calcium 8.4 mg/dL (8.4-10.2)
[2017-04-29] MEDS: PRADAXA PO SCH (10:13)
[2017-04-29] MEDS: CATAPRES PO SCH (10:13)
[2017-04-29] MEDS: ZESTRIL PO SCH (10:14)
[2017-04-29] MEDS: TRADJENTA PO SCH (10:15)
[2017-04-29] MEDS: PROTONIX PO SCH (10:15)
[2017-04-29] MEDS: IMDUR PO SCH (10:15)
[2017-04-29] MEDS: APRESOLINE PO SCH (10:16)
--- NOTE | 2017-04-29 10:54 | Progress Note ---
Assessment and Plan Assessment: Acute heart failure with preserved EF - nearing/at euvolemia Permanent atrial fibrillation with SVR - HR improved since holding home Coreg; anticoagulated with Pradaxa Vertigo / ? symptomatic bradycardia - head CT with NAF CAD s/p PCI HTN HLP DM Carcinoid syndrome olycythemia CKD Plan: Echo reviewed - EF 50-55%, mild LVH, LA mildly dilated, mild AR, mild to mod MR , mild TR, RVSP 38mmHg, possible restrictive diastolic function (pt in AFib). Thyroid profile WNL. Orthostatics pending. Cont to hold home Coreg and will decrease home clonidine dosage to 0.1mg PO BID. Convert IV lasix to PO 40mg daily. Currently stable cardiac status. Pt may discharge home from cardiology standpoint pending orthostatics are unremarkable. Follow up in our [place] office with Dr. Santana for EP consultation on 05/17 @ 10:15AM. Follow up in our [place] office with Dr. De La Rosa on 05/19/2017 @ 11:15AM. The patient has been seen in conjunction with Dr. Charles who agrees with the assessment and plan of care. Subjective Date of service: 04/29/17 Principal diagnosis: HF; AFib with SVR Interval history: pt resting comfortably in bed, no current complaints. reports a bout of vertigo overnight but none since then. Tele reviewed - pt remains in AFib with HR currently 60s - 70s, HR 30s - 40s with a few 2-3 second pauses noted overnight while pt sleeping. BPs WNL. Objective Last Vital Signs Temp 97.9 F 04/29/17 08:15 Pulse 65 04/29/17 10:15 Resp 18 04/29/17 08:15 BP 126/89 04/29/17 10:15 Pulse Ox 96 04/29/17 08:15 - Physical Examination General: No Apparent Distress HEENT: Positive: PERRL, Normocephaly, Mucus Membranes Moist Neck: Positive: neck supple, trachea midline Cardiac: Positive: irregularly irregular, S1/S2 Lungs: Positive: clear to auscultation Neuro: Positive: Grossly Intact Abdomen: Positive: Soft. Negative: Tender Skin: Positive: Clear. Negative: Rash, Wound Musculoskeletal: No Pain, Normal Range of Motion Extremities: Absent: edema - Labs and Meds Comprehensive Metabolic Panel 03/15/18 Range/Units 05:15 Sodium 141 (137-145) mmol/L Potassium 3.4 L (3.6-5.0) mmol/L Chloride 98.7 (98-107) mmol/L Carbon Dioxide 28 (22-30) mmol/L BUN 20 (9-20) mg/dL Creatinine 1.5 (0.8-1.5) mg/dL Glucose 112 H (75-100) mg/dL Calcium 8.4 (8.4-10.2) mg/dL - Imaging and Cardiology EKG: report reviewed, image reviewed Echo: report reviewed (05/2015 showed EF 55-60%, mild MR, mild TR, trace AR, mod LVH. ) Holter: report reviewed (08/2013 showed dominant rhythm of AFib with mostly SVR, HR range 49-111bpm, no ventricular ectopies, no supraventricular ectopies. ) - Telemetry EKG Rhythm: Atrial Fibrillation
[2017-04-29] MEDS ORDERED: CATAPRES PO SCH (12:00)
[2017-04-29] MEDS ORDERED: NACL 0.9% 250ML 250 ML ONE (14:34)
[2017-04-29 16:59] VITALS: BP 102/73
--- NOTE | 2017-04-29 17:26 | Discharge Summary ---
Providers - Providers Date of Admission: 04/27/17 23:08 Attending physician: POOJA VAZQUEZ MD 04/27/17 23:08 Consult to Physician [CONS] Routine Consulting Provider: AKBAR MURCIA Reason For Exam: CHF exacerbation Place consult to:: Dr. Murcia Notified:: nurse Phone number called:: overhead page Was contact made?: Yes If yes, spoke with:: Valeria Time called:: 09:39 Primary care physician: MANAGING SUPERVISOR Hospitalization Reason for admission: Dizziness, diastolic CHF, bradycardia, hypotension Condition: Stable Hospital course: Admission H/P The patient is a 76 YO male with a past medical history significant for CAD s/p PCI, HTN, HLP, DM, permanent atrial fibrillation with SVR, anticoagulated with Pradaxa, carcinoid syndrome, polycythemia, CKD, LVH. He is followed by Dr. Murcia. He presented with c/o progressively worsening BLE edema and SOB x 1 week prior to arrival and intermittent vertigo since Wednesday. He reports that he has been feeling a "room spinning" sensation since Wednesday. The spinning sometimes occurs with activity and sometimes while at rest. There are no clear aggravating or alleviating factors. He denies any chest pain, palpitations, n/v , diaphoresis or syncope. Review of telemetry shows pt is in AFib with SVR with HR range 40s - 60s with 2-3 second pauses. BPs stable. Pt has been taking coreg 12.5mg PO BID and clonidine 0.2mg PO BID at home. Pt reports that he is known to have bradycardia and underwent Holter study in our office several years ago. He reports that he was evaluated by Dr. Santana for possible PPM placement and was told that PPM was not indicated at that time. Holter study done 08/2013 showed dominant rhythm of AFib with mostly SVR, HR range 49-111bpm, no ventricular ectopies, no supraventricular ectopies. Pt underwent lexiscan MPI stress test in our office 12/2016 which showed some fixed defects, no significant stress induced ischemia, EF 61%. Echo done 05/2015 showed EF 55-60%, mild MR, mild TR, trace AR, mod LVH. Patient was admitted to the floor and evaluated by cardiology and recommend no cardiac workup, most likely the cause of the dizziness was dropping in blood pressure, because patient's blood pressure was low while she was inpatient. Because of the bradycardia carvedilol was discontinued. Also discontinue the clonidine and the blood pressure medications at the time of discharge. Patient is hemodynamically stable at the time of discharge. Patient was scheduled to have follow-up with cardiology as an outpatient in a week. Disposition: DC-01 TO HOME OR SELFCARE Time spent for discharge: 31 minutes - Discharge Diagnoses (1) Bradycardia Status: Acute (2) Hypotension Status: Acute (3) CHF (congestive heart failure) Status: Chronic Qualifiers: Heart failure type: diastolic Heart failure chronicity: acute on chronic Qualified Code(s): I50.33 - Acute on chronic diastolic (congestive) heart failure (4) Colon polyp Status: Chronic (5) Dizziness Status: Acute Core Measure Documentation - Palliative Care Palliative Care/ Comfort Measures: Not Applicable - Core Measures Any of the following diagnoses?: heart failure - Heart Failure Discharge Requirements HAZEL/ARB for LVSD if EF <40%: Not Applicable Beta monica at discharge: No Reason for no beta monica on DC: Bradycardia Exam - Physical Exam Narrative exam: Not in cardiopulmonary distress. The patient appeared well nourished and normally developed. Vital signs as documented. Head exam is unremarkable. No scleral icterus . Neck is without jugular venous distension, thyromegaly, or carotid bruits. Lungs are clear to auscultation. Cardiac exam reveals regular rate and Rhythm. Abdominal exam reveals normal bowel sounds. Extremities +2 pedal and pretibial edema. OUTSIDE MAINTENANCE WORKER: Alert and oriented 3. No focal weakness. - Constitutional Vitals: Temp Pulse Resp BP Pulse Ox 98.2 F 52 L 18 102/73 97 04/29/17 15:00 04/29/17 15:00 04/29/17 15:00 04/29/17 15:00 04/29/17 15:00 Plan Activity: no restrictions Weight Bearing Status: Full Weight Bearing Diet: low cholesterol Follow up with: AIDEN CONDON MD [Primary Care Provider] - 7 Days
[2017-04-30] MEDS ORDERED: LASIX PO SCH (10:00)
== END 2017-04-29 15:00 | disposition home or self-care (01) | DRG 291 ==
LOC: ED 10:05 → 4A 23:08
PROVIDERS: ADMIT Internal Medicine; ATTEND Internal Medicine
DX: I13.0 Hypertensive heart and chronic kidney disease with heart failure and stage 1 through stage 4 chronic kidney disease, or unspecified chronic kidney disease (principal); I50.33 Acute on chronic diastolic (congestive) heart failure; E34.0 Carcinoid syndrome; K21.9 Gastro-esophageal reflux disease without esophagitis; I25.10 Atherosclerotic heart disease of native coronary artery without angina pectoris; E78.5 Hyperlipidemia, unspecified; I48.2 Chronic atrial fibrillation; Z79.01 Long term (current) use of anticoagulants; D75.1 Secondary polycythemia; E11.22 Type 2 diabetes mellitus with diabetic chronic kidney disease; N18.9 Chronic kidney disease, unspecified; R00.1 Bradycardia, unspecified; I08.3 Combined rheumatic disorders of mitral, aortic and tricuspid valves; K63.5 Polyp of colon; H40.9 Unspecified glaucoma; Z79.4 Long term (current) use of insulin; Z79.899 Other long term (current) drug therapy; Z95.5 Presence of coronary angioplasty implant and graft; Z90.49 Acquired absence of other specified parts of digestive tract; Z82.49 Family history of ischemic heart disease and other diseases of the circulatory system; Z88.8 Allergy status to other drugs, medicaments and biological substances; I95.9 Hypotension, unspecified
CPT/HCPCS: 36415; 70450; 71046; 80048; 80053; 80061; 82962; 83036; 83880; 84439; 84443; 84484; 85025; 85610; 85730; 93005; 93010; 93306; A9270-GY; J1644; J1815; J1940; J7050

== ENCOUNTER 2017-07-08 13:04 | Outpatient (CLI) | payer MEDICARE, OTHER ==
--- NOTE | 2017-07-15 13:01 | PET Report ---
PET SB TO MT SUBSEQUENT: HISTORY: Carcinoid. TECHNIQUE: 13.1 millicuries F-18 FDG was administered intravenously. Noncontrast CT images and PET images were obtained from the skull base to the proximal thighs. Fused images were reviewed on a workstation. The patient's blood glucose level measured 107. COMPARISON: No previous PET/CT at this facility. FINDINGS: BRAIN: physiologic FDG uptake in the imaged brain. NECK: physiologic FDG uptake. MEDIASTINUM: physiologic FDG uptake. Mild cardiomegaly. LUNGS: physiologic FDG uptake. Chronic granulomatous findings are noted. PLEURA/PERICARDIUM: physiologic FDG uptake. THORACIC LYMPH NODES: physiologic FDG uptake. HEPATOBILIARY: physiologic FDG uptake. Mean liver SUV measures 2.5. PANCREAS: physiologic FDG uptake. SPLEEN: physiologic FDG uptake. Multiple calcified splenic granulomas are noted. ADRENAL GLANDS: physiologic FDG uptake. KIDNEYS/RENAL COLLECTING SYSTEMS: physiologic FDG uptake. 2 left ovarian cysts measuring 2 cm and 4 cm are noted. The bladder is empty. BOWEL/MESENTERY: physiologic FDG uptake. ABDOMINAL/PELVIC LYMPH NODES: physiologic FDG uptake. MUSCULOSKELETAL: physiologic FDG uptake. IMPRESSION: Negative PET/CT. No evidence for disease recurrence or metastasis.
== END 2017-07-08 13:05 | disposition home or self-care (01) ==
LOC: PET 13:04
DX: C7A.098 Malignant carcinoid tumors of other sites (principal); I11.0 Hypertensive heart disease with heart failure; I50.9 Heart failure, unspecified; K21.9 Gastro-esophageal reflux disease without esophagitis; R79.89 Other specified abnormal findings of blood chemistry
CPT/HCPCS: 78815; 82962; A9552

== ENCOUNTER 2017-09-16 13:10 | Outpatient (CLI) | payer MEDICARE, OTHER ==
--- NOTE | 2017-09-16 17:49 | Cat Scan Report ---
FINAL REPORT EXAM: CT CHEST W CON HISTORY: SARCOIODOSIS TECHNIQUE: CT examination of the chest after IV contrast PRIORS: None. FINDINGS: Normal cardiac size. Slight pericardial thickening anteriorly and inferiorly may be a small effusion. Coronary artery calcification. Intact normal caliber thoracic aorta. Normal-appearing esophagus. No evidence of hilar mass or mediastinal adenopathy. The visualized pulmonary arteries are diffusely patent bilaterally. There is no filling defect to suggest PE. Nonspecific calcified granulomas are noted in the sub-carinal mediastinum, right hilum, spleen, and right lung. These may be associated with history of sarcoidosis. Ratio main pulmonary artery to ascending aorta is greater than 1 which may reflect pulmonary arterial hypertension. Nonspecific, smoothly marginated, simple appearing, low density bilateral renal lesions are statistically most likely cysts. Degenerative change regional skeleton. No acute fracture or significant osseous lesion. No pneumothorax, pleural effusion, or focal pulmonary consolidation. No definite noncalcified pulmonary nodule. No lung mass. IMPRESSION: Anterior and inferior pericardial thickening may be a small pericardial effusion. Coronary artery calcification. Main pulmonary artery larger than ascending aorta may reflect pulmonary arterial hypertension Multifocal granulomatous calcification may be associated with history of sarcoidosis. No definite evidence of lung mass or mediastinal/hilar adenopathy
== END 2017-09-16 13:11 | disposition home or self-care (01) ==
LOC: CT 13:10
PROVIDERS: ATTEND Specialist
DX: I25.10 Atherosclerotic heart disease of native coronary artery without angina pectoris (principal); D86.9 Sarcoidosis, unspecified; I10 Essential (primary) hypertension; Z88.8 Allergy status to other drugs, medicaments and biological substances
CPT/HCPCS: 36415; 71260; 82565; 84520; Q9967

== ENCOUNTER 2018-05-30 13:16 | Outpatient (CLI) | payer MEDICARE, OTHER ==
--- NOTE | 2018-06-01 09:40 | Ultrasound Report ---
BILATERAL AXILLARY ULTRASOUND: 05/30/18 13:16:00 CLINICAL: History of carcinoid tumor and palpable bilateral axillary lymph nodes. COMPARISON: CT chest with contrast 09/16/17 FINDINGS: Ultrasound of the right axilla demonstrated a couple of unusual looking lymph nodes measuring 1.3 x 0.9 cm and 1.7 x 1.5 x 0.9 cm. The lymph nodes have abnormal architecture with increased echogenicity in the periphery of the lymph nodes. Ultrasound of the left axilla demonstrated several abnormal appearing lymph nodes with increased echogenicity. They measure 1.1 x 1.2 x 0.6 cm and 2.3 x 0.9 x 1.7 cm. The technologist made measurements of other structures which I do not believe the lymph nodes. IMPRESSION: Bilateral abnormal axillary lymph nodes with the most abnormal and largest on the left. Carcinoid involvement is a possibility. The larger lymph nodes on the left would be amenable to ultrasound-guided biopsy.
== END 2018-05-30 13:17 | disposition home or self-care (01) ==
LOC: US 13:16
PROVIDERS: ATTEND Internal Medicine Hematology & Oncology
DX: C74.00 Malignant neoplasm of cortex of unspecified adrenal gland (principal); R59.0 Localized enlarged lymph nodes; I10 Essential (primary) hypertension; K21.9 Gastro-esophageal reflux disease without esophagitis; E11.9 Type 2 diabetes mellitus without complications; Z90.49 Acquired absence of other specified parts of digestive tract

== ENCOUNTER 2018-06-16 13:54 | Outpatient (CLI) | payer MEDICARE, OTHER ==
--- NOTE | 2018-06-16 15:13 | Ultrasound Report ---
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 COMPARISON :05/30/18 FINDINGS: The procedure was explained to the patient and informed consent was obtained. Ultrasound demonstrated the previously described unusual appearing axillary lymph nodes. The skin in the axilla was prepped with Betadine and anesthetized with 1% lidocaine. Ultrasound guided needle core biopsy of a lymph node was performed through a small dermatotomy using 2% lidocaine with epinephrine for deep anesthesia and a 18-gauge Achieve biopsy device. 4 samples were obtained and placed in formalin. A clip was deployed within the lymph node. Hemostasis was achieved with minimal pressure and a sterile dressing was applied. The patient tolerated the procedure well and there were no apparent complications. He was discharged in good condition and was given instructions for wound care and followup. IMPRESSION: Uncomplicated ultrasound-guided needle core biopsy of a left lymph node with clip placement.
== END 2018-06-16 13:55 | disposition home or self-care (01) ==
LOC: SPVWC 13:54
PROVIDERS: ATTEND Internal Medicine Hematology & Oncology
DX: D36.0 Benign neoplasm of lymph nodes (principal); I89.8 Other specified noninfective disorders of lymphatic vessels and lymph nodes; C74.00 Malignant neoplasm of cortex of unspecified adrenal gland; I11.0 Hypertensive heart disease with heart failure; I50.9 Heart failure, unspecified; H40.9 Unspecified glaucoma; I25.10 Atherosclerotic heart disease of native coronary artery without angina pectoris; I48.91 Unspecified atrial fibrillation; G47.30 Sleep apnea, unspecified; K21.9 Gastro-esophageal reflux disease without esophagitis; E11.39 Type 2 diabetes mellitus with other diabetic ophthalmic complication; Z98.890 Other specified postprocedural states; Z79.899 Other long term (current) drug therapy; Z79.4 Long term (current) use of insulin; Z85.068 Personal history of other malignant neoplasm of small intestine; Z90.49 Acquired absence of other specified parts of digestive tract; Z86.2 Personal history of diseases of the blood and blood-forming organs and certain disorders involving the immune mechanism; Z88.8 Allergy status to other drugs, medicaments and biological substances
CPT/HCPCS: 38505; 76942; 88305; 88341; 88342

== ENCOUNTER 2018-06-22 08:51 | Outpatient (CLI) | payer MEDICARE, OTHER ==
--- NOTE | 2018-06-27 08:45 | Nuclear Medicine Report ---
NUCLEAR MEDICINE TUMOR LOCAL WB 2 DAYS NUCLEAR MEDICINE TUMOR LOCAL SPECT HISTORY: Carcinoid tumor. TECHNIQUE: 4 and 24-hour whole body imaging was performed following injection of 6.3 mCi of indium 111 octreotide. SPECT imaging through the lower chest and abdomen in 3 planes. COMPARISON: OctreoScan dated 08/27/14. PET CT dated 07/08/17. Ultrasound left axilla biopsy dated 06/16/18. FINDINGS: There is physiologic distribution of the radiotracer. 4 and 24 hour images demonstrates no abnormal focal collection of the radiotracer to suggest disease recurrence or metastasis. No abnormal activity is identified in the left axilla corresponding to recent biopsy. No change is demonstrated since 08/27/14. IMPRESSION: Negative OctreoScan.
== END 2018-06-22 08:52 | disposition home or self-care (01) ==
LOC: NM 08:51
PROVIDERS: ATTEND Internal Medicine Hematology & Oncology
DX: C7A.00 Malignant carcinoid tumor of unspecified site (principal); I11.0 Hypertensive heart disease with heart failure; I50.9 Heart failure, unspecified; I25.10 Atherosclerotic heart disease of native coronary artery without angina pectoris; I48.91 Unspecified atrial fibrillation; K21.9 Gastro-esophageal reflux disease without esophagitis; E11.9 Type 2 diabetes mellitus without complications; Z90.49 Acquired absence of other specified parts of digestive tract; Z86.2 Personal history of diseases of the blood and blood-forming organs and certain disorders involving the immune mechanism
CPT/HCPCS: 78804; A9572

== ENCOUNTER 2018-09-01 13:15 | Emergency (ER) | payer MEDICARE, OTHER ==
--- NOTE | 2018-09-01 13:32 | Event Note ---
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 Further treatment and workup at subsequent clinical providers discretion. Patient/guardian urged not to elope from the ED as their condition may be serious if not clinically assessed and managed. Initial orders include: labs, EKG
--- NOTE | 2018-09-01 14:07 | Emergency Department Report ---
ED Recheck HPI - General Chief Complaint: Recheck/Abnormal Lab/Rx Stated Complaint: K+ HIGH Time Seen by Provider: 09/01/18 13:58 Source: patient Mode of arrival: Ambulatory Limitations: No Limitations - History of Present Illness Initial Comments: Patient is a 78-year-old male presents to emergency with complaints of elevated potassium. Patient states that his oncology office checked his chemistry yesterday and they called today and told him because potassium was elevated. Patient states he believes as above 6. Patient denies chest pain. Patient denies muscle cramping. Patient denies shortness of breath. Patient denies physical complaints. Patient denies pain. MD Complaint: abnormal lab -: Sudden Returns Today for: CBOAL Symptoms Since Prior Visit: no new symptoms Context: called for abnorm lab res Associated Symptoms: none. denies: fever, chills, chest pain, shortness of breath, rash, malaise, nasuea, abdominal pain - Related Data Home Medications Medication Instructions Recorded Confirmed Last Taken Dabigatran [Pradaxa] 75 mg PO BID 03/21/13 04/27/17 04/26/17 Latanoprost [Xalatan 0.005% eye 1 drop OU HS 03/21/13 04/27/17 04/26/17 drops] Simvastatin (Nf) [Zocor TAB] 20 mg PO DAILY 03/21/13 04/27/17 06/30/15 yes Insulin Glargine [Lantus VIAL] 30 unit SUB-Q QHS 06/19/14 04/27/17 04/26/17 Dexlansoprazole [Dexilant] 60 mg PO DAILY 04/27/17 04/27/17 Unknown Furosemide [Lasix TAB] 40 mg PO DAILY 04/27/17 04/27/17 Unknown Sitagliptin Phosphate [Januvia] 50 mg PO DAILY 04/27/17 04/27/17 04/26/17 cloNIDine [Catapres] 0.2 mg PO BID 04/27/17 04/27/17 Unknown Allergies Allergy/AdvReac Type Severity Reaction Status Date / Time diazepam [From Valium] AdvReac Intermediate CHEST PAIN Verified 01/31/14 14:10 ED Review of Systems ROS: Stated complaint: K+ HIGH Other details as noted in HPI Constitutional: denies: chills, fever Eyes: denies: eye pain, eye discharge, vision change ENT: denies: ear pain, throat pain Respiratory: denies: cough, shortness of breath, wheezing Cardiovascular: denies: chest pain, palpitations Endocrine: no symptoms reported Gastrointestinal: denies: abdominal pain, nausea, diarrhea Genitourinary: denies: urgency, dysuria Musculoskeletal: denies: back pain, joint swelling, arthralgia Skin: denies: rash, lesions Neurological: denies: headache, weakness, paresthesias Psychiatric: denies: anxiety, depression Hematological/Lymphatic: denies: easy bleeding, easy bruising ED Past Medical Hx - Past Medical History Previous Medical History?: Yes Hx Hypertension: Yes Hx Diabetes: Yes (FOR 10 YRS) Hx GERD: Yes Hx Liver Disease: No Hx Renal Disease: Yes (baseline creatinine 1.6) Hx of Cancer: Yes (carcinoid) Hx Sickle Cell Disease: No Hx Seizures: No Hx Asthma: No Hx COPD: No Hx HIV: No Additional medical history: a fib. glaucoma. sleep apnea - Surgical History Past Surgical History?: Yes Hx Coronary Stent: Yes (X1 IN 2002) Hx Pacemaker: No Hx Internal Defibrillator: No Hx Cholecystectomy: Yes (LAP 04-25-07) Additional Surgical History: Hernia repair 06/27/14 at [facility] - Family History Family history: no significant - Social History Smoking Status: Never Smoker Substance Use Type: None - Medications Home Medications: Home Medications Medication Instructions Recorded Confirmed Last Taken Type Dabigatran [Pradaxa] 75 mg PO BID 03/21/13 04/27/17 04/26/17 History Latanoprost [Xalatan 0.005% eye 1 drop OU HS 03/21/13 04/27/17 04/26/17 History drops] Simvastatin (Nf) [Zocor TAB] 20 mg PO DAILY 03/21/13 04/27/17 06/30/15 History yes Insulin Glargine [Lantus VIAL] 30 unit SUB-Q QHS 06/19/14 04/27/17 04/26/17 History Dexlansoprazole [Dexilant] 60 mg PO DAILY 04/27/17 04/27/17 Unknown History Furosemide [Lasix TAB] 40 mg PO DAILY 04/27/17 04/27/17 Unknown History Sitagliptin Phosphate [Januvia] 50 mg PO DAILY 04/27/17 04/27/17 04/26/17 History cloNIDine [Catapres] 0.2 mg PO BID 04/27/17 04/27/17 Unknown History ED Physical Exam - General Limitations: No Limitations General appearance: alert, in no apparent distress - Head Head exam: Present: atraumatic, normocephalic - Eye Eye exam: Present: normal appearance - ENT ENT exam: Present: mucous membranes moist - Neck Neck exam: Present: normal inspection - Respiratory Respiratory exam: Present: normal lung sounds bilaterally. Absent: respiratory distress - Cardiovascular Cardiovascular Exam: Present: regular rate, normal rhythm. Absent: systolic murmur, diastolic murmur, rubs, gallop - GI/Abdominal GI/Abdominal exam: Present: soft, normal bowel sounds - Rectal Rectal exam: Present: deferred - Extremities Exam Extremities exam: Present: normal inspection - Back Exam Back exam: Present: normal inspection - Neurological Exam Neurological exam: Present: alert, oriented X3 - Psychiatric Psychiatric exam: Present: normal affect, normal mood - Skin Skin exam: Present: warm, dry, intact, normal color. Absent: rash ED Course Vital Signs 09/01/18 09/01/18 09/01/18 13:30 14:30 14:31 Temperature 97.8 F 97.7 F Pulse Rate 66 65 Respiratory 16 15 15 Rate Blood Pressure 148/81 Blood Pressure 135/75 [Left] O2 Sat by Pulse 97 98 98 Oximetry - Reevaluation(s) Reevaluation #1: Discussed all results with patient. Patient is stable for discharge. Patient will be discharged home. Patient agrees with plan of care. Discussed all discharge instructions the patient. Patient voices understanding of discharge instructions. 09/01/18 15:00 ED Recheck MDM - Core Measures AMI Core Measures Followed: Yes Measure Exclusions: not indicated - Differential Diagnosis Recheck of Abnormal Lab - Medical Decision Making Patient is a 78-year-old male presents to emergency room with complaints of elevated potassium. Patient's potassium is elevated at his oncologist office and we rechecked his chemistry and his potassium is 4.4. Patient's creatinine is at baseline. Patient is stable for discharge. Patient was discharged home. Patient give discharged. EKGs consistent with atrial fibrillation but a normal rate. Critical care attestation.: If time is entered above; I have spent that time in minutes in the direct care of this critically ill patient, excluding procedure time. ED Disposition Clinical Impression: Hyperkalemia, Abnormal blood chemistry CKD (chronic kidney disease) Qualifiers: Chronic kidney disease stage: unspecified stage Qualified Code(s): N18.9 - Chronic kidney disease, unspecified Disposition: TO HOME OR SELFCARE Is pt being admited?: No Does the pt Need Aspirin: No Condition: Stable Instructions: Hyperkalemia (ED) Additional Instructions: Patient to follow-up with primary care in 2-3 days. Patient to follow-up with oncologist in 2-3 days. Patient to return to ER if condition worsens. Patient to rest. Patient to increase water. Patient to take meds as directed. Time of Disposition: 15:02 EKG interpretations - Telemetry EKG Rhythm: Atrial Fibrillation QRS axis and voltage: left axis deviation Normal tracing: no change
[2018-09-01 14:31] VITALS: BP 135/75
[2018-09-01 14:36] LABS: Calcium 9.3 mg/dL (8.4-10.2)
== END 2018-09-01 15:49 | disposition home or self-care (01) ==
LOC: ED 13:15
DX: E87.5 Hyperkalemia (principal); E11.22 Type 2 diabetes mellitus with diabetic chronic kidney disease; I12.9 Hypertensive chronic kidney disease with stage 1 through stage 4 chronic kidney disease, or unspecified chronic kidney disease; N18.9 Chronic kidney disease, unspecified; K21.9 Gastro-esophageal reflux disease without esophagitis; I48.91 Unspecified atrial fibrillation; Z79.01 Long term (current) use of anticoagulants; Z95.5 Presence of coronary angioplasty implant and graft; Z90.49 Acquired absence of other specified parts of digestive tract; Z98.890 Other specified postprocedural states; Z79.899 Other long term (current) drug therapy; Z79.4 Long term (current) use of insulin; Z88.8 Allergy status to other drugs, medicaments and biological substances
CPT/HCPCS: 36415; 80048; 93005; 93010

== ENCOUNTER 2018-10-13 13:27 | Outpatient (CLI) | payer MEDICARE, OTHER ==
--- NOTE | 2018-10-13 18:04 | Cat Scan Report ---
CT of the abdomen and pelvis without contrast INDICATION: Restaging of carcinoid tumor COMPARISON: 01/19/2018 FINDINGS: Calcified granuloma is seen in the right lower lobe with a small 1 mm right middle lobe nod ule. On the noncontrast study there are no definite hepatic metastases identified. Gallbladder has be en removed. No biliary tree dilation is seen. The spleen, pancreas and adrenal glands are unremarkabl e and unchanged. Left renal cysts are stable with small right renal cysts also unchanged. Again there are no definite pancreatic masses seen with the uncinate process unremarkable and unchanged. Small r etroperitoneal lymph nodes are also unchanged in size and number. There is no ascites or carcinomatos is in the upper abdomen. There is 1 mm left renal stone which is nonobstructing. There is moderate va scular calcification without aneurysm. CT of the pelvis shows a normal appendix. There has been right inguinal hernia repair. Prostate is mi nimally enlarged. Bladder is empty. There is sigmoid diverticulosis without diverticulitis. No mesent leandro mass is seen with the terminal ileum unremarkable. No skeletal metastases identified. IMPRESSION: No recurrent tumor seen. Automated exposure control was utilized to diminish radiation dose. Signer Name: Charles Yap MD Signed: 10/13/2018 6:00 PM Workstation Name: [id number]
== END 2018-10-13 13:28 | disposition home or self-care (01) ==
LOC: CT 13:27
PROVIDERS: ATTEND Internal Medicine Nephrology
DX: K75.3 Granulomatous hepatitis, not elsewhere classified (principal); K57.30 Diverticulosis of large intestine without perforation or abscess without bleeding; N28.1 Cyst of kidney, acquired; N20.0 Calculus of kidney; I25.10 Atherosclerotic heart disease of native coronary artery without angina pectoris; I48.91 Unspecified atrial fibrillation; I10 Essential (primary) hypertension; G89.29 Other chronic pain; K21.9 Gastro-esophageal reflux disease without esophagitis; E11.9 Type 2 diabetes mellitus without complications; Z90.49 Acquired absence of other specified parts of digestive tract
CPT/HCPCS: 74176